=== PATIENT | female | born 1980 | race Caucasian/White ===

== ENCOUNTER 2017-05-30 21:27 | Emergency (ER) | payer SELFPAY ==
--- NOTE | 2017-05-30 22:45 | Cat Scan Report ---
FINAL REPORT PROCEDURE: CT HEAD/BRAIN WO CON TECHNIQUE: Computerized tomography of the head was performed without contrast material. HISTORY: headache x1wk COMPARISON: No prior studies are available for comparison. FINDINGS: Small retention cyst is seen in the right maxillary sinus. Paranasal sinuses appear clear. No calvarial fracture is seen. Cerebral ventricles are normal in size. No acute intracranial hemorrhage or mass effect is seen. No CVA is seen. IMPRESSION: Small right maxillary retention cyst is seen. No intracranial abnormality is seen.
[2017-05-31] MEDS ORDERED: REGLAN PO ONE (00:57)
[2017-05-31] MEDS ORDERED: TYLENOL PO ONE (00:57)
--- NOTE | 2017-05-31 00:59 | Emergency Department Report ---
ED Headache HPI - General Chief Complaint: Headache Stated Complaint: HEADACHE X'S 1 WK Time Seen by Provider: 05/31/17 00:15 - History of Present Illness Initial Comments: 36-year-old female past medical history none presents with complaint of 3 weeks of ongoing persistent anterior headache. Denies any head trauma no fever or chills mild photophobia and no phonophobia denies any neck rigidity. Denies any nausea vomiting chest pain abdominal pain palpitations shortness of breath. Denies any upper or lower extremity paresthesias. Patient is visibly ambulatory in examination room. He is awake alert and oriented 3 does not appear to be in acute distress. Denies any blurry vision. No earache sore throat or sinus congestion. Timing/Duration: waxing and waning, other (3 weeks) Quality: moderate, throbbing Head Injury Location: frontal Recent Head Trauma: no recent headache/trauma Allergies/Adverse Reactions: Allergies tetracycline [Tetracycline] Allergy (Mild, Verified 03/27/14 02:27) Rash Home Medications: Ambulatory Orders Metoclopramide HCl [Reglan TAB] 5 mg PO TIDAC PRN #10 tablet 05/31/17 Naproxen [Naprosyn TAB] 500 mg PO BID PRN #25 tablet 05/31/17 ED Review of Systems ROS: Stated complaint: HEADACHE X'S 1 WK Other details as noted in HPI Constitutional: denies: chills, fever Eyes: denies: eye pain, eye discharge, vision change ENT: denies: ear pain, throat pain Respiratory: denies: cough, shortness of breath, wheezing Cardiovascular: denies: chest pain, palpitations Endocrine: no symptoms reported Gastrointestinal: denies: abdominal pain, nausea, diarrhea Genitourinary: denies: urgency, dysuria, discharge Musculoskeletal: denies: back pain, joint swelling, arthralgia Skin: denies: rash, lesions Neurological: as per HPI, headache. denies: weakness, paresthesias Psychiatric: denies: anxiety, depression Hematological/Lymphatic: denies: easy bleeding, easy bruising ED Past Medical Hx - Past Medical History Previous Medical History?: No Hx Hypertension: No Hx Congestive Heart Failure: No Hx Diabetes: No Hx Deep Vein Thrombosis: No Hx Renal Disease: No Hx Sickle Cell Disease: No Hx Seizures: No Hx Asthma: No (DENIES) Hx COPD: No Hx HIV: No - Surgical History Past Surgical History?: No - Social History Smoking Status: Never Smoker Substance Use Type: None - Medications Home Medications: Home Medications Medication Instructions Recorded Confirmed Last Taken Type Metoclopramide HCl [Reglan TAB] 5 mg PO TIDAC PRN #10 tablet 05/31/17 Unknown Rx Naproxen [Naprosyn TAB] 500 mg PO BID PRN #25 tablet 05/31/17 Unknown Rx ED Physical Exam - General Limitations: Language Barrier General appearance: alert, in no apparent distress - Head Head exam: Present: atraumatic, normocephalic - Eye Eye exam: Present: normal appearance, PERRL, EOMI - ENT ENT exam: Present: mucous membranes moist - Neck Neck exam: Present: normal inspection, full ROM (neck flexion and extension fully intact on exam) - Respiratory Respiratory exam: Present: normal lung sounds bilaterally. Absent: respiratory distress - Cardiovascular Cardiovascular Exam: Present: regular rate, normal rhythm. Absent: systolic murmur, diastolic murmur, rubs, gallop - GI/Abdominal GI/Abdominal exam: Present: soft, normal bowel sounds - Extremities Exam Extremities exam: Present: normal inspection - Back Exam Back exam: Present: normal inspection - Neurological Exam Neurological exam: Present: alert, oriented X3, CN II-XII intact, normal gait - Expanded Neurological Exam Expanded Patient oriented to: Present: person, place, time Cranial nerves: EOM's Intact: Normal, Facial Sensation: Normal Cerebellar function: Finger to Nose: Normal, Heel to Frye: Normal, Romberg: Normal Sensory exam: Upper Extremity Light Touch: Normal, Lower Extremity Light Touch: Normal Motor strength exam: RUE: 5, LUE: 5, RLE: 5, LLE: 5 DTR: tricep (R): 3+, tricep (L): 3+, knee (R): 3+, knee (L): 3+ Best Eye Response (Jared): (4) open spontaneously Best Motor Response (Howell): (6) obeys commands Best Verbal Response (Howell): (5) oriented Howell Total: 15 - Psychiatric Psychiatric exam: Present: normal affect, normal mood - Skin Skin exam: Present: warm, dry, intact, normal color. Absent: rash ED Course Vital Signs 05/30/17 05/31/17 22:05 01:55 Temperature 99.0 F Pulse Rate 75 70 Respiratory 18 18 Rate Blood Pressure 113/76 Blood Pressure 114/77 [Left] O2 Sat by Pulse 99 99 Oximetry ED Medical Decision Making - Medical Decision Making A/P: Migraine/tension headache 1-patient awake alert and oriented 3 not in acute distress renal nerves I through XII grossly intact. Patient is ambulatory without assistance no gross neurological deficits on clinical exam. Patient has no signs of meningismus no fever no chills no photophobia no neck rigidity no confusion. Patient advised to return to the ED if her headache worsens or she experiences fevers chills nuchal rigidity persistent nausea and vomiting. Patient is tolerating by mouth without difficulty. 2-patient felt significant relief of headache with 1 dose of by mouth Reglan and Tylenol 3-short course of Reglan and naproxen when necessary for headache 4- patient advised to follow-up with her primary care doctor and I referred her to outpatient neurology. Patient had lab work done within the last month that showed normal BMP and normal CBC normal urine. 5-noncontrast head CT within normal limits Critical care attestation.: If time is entered above; I have spent that time in minutes in the direct care of this critically ill patient, excluding procedure time. ED Disposition Clinical Impression: Migraine Qualifiers: Migraine type: unspecified Status migrainosus presence: without status migrainosus Intractability: not intractable Qualified Code(s): G43.909 - Migraine, unspecified, not intractable, without status migrainosus Disposition: - TO HOME OR SELFCARE Is pt being admited?: No Does the pt Need Aspirin: No Condition: Stable Instructions: Metoclopramide (By mouth), Naproxen (By mouth), Migraine Headache (ED), Tension Headache (ED), Acute Headache (ED) Prescriptions: Metoclopramide HCl [Reglan TAB] 5 mg PO TIDAC PRN #10 tablet PRN Reason: Headache Naproxen [Naprosyn TAB] 500 mg PO BID PRN #25 tablet PRN Reason: Headache Referrals: [facility] [Provider Group] - 3-5 Days BRUNO BOTELLO MD [Staff Physician] - 3-5 Days Forms: Accompanied Note, Work/School Release Form(ED) Time of Disposition: 02:39 Print Language: ENGLISH
[2017-05-31 01:56] VITALS: BP 114/77
== END 2017-05-31 01:55 | disposition home or self-care (01) ==
LOC: ED 21:27
DX: G43.909 Migraine, unspecified, not intractable, without status migrainosus (principal)
CPT/HCPCS: 70450